=== PATIENT | male | born 1995 | race African-American/Black ===

== ENCOUNTER 2018-11-10 17:53 | Emergency (ER) | payer OTHER ==
[~2018-11-10] VITALS: Ht 182.9 cm; Wt 73.9 kg
--- NOTE | 2018-11-10 18:24 | ED.ADGEN ---
Adult General Chief Complaint Chief Complaint " I swallow a short metal object.. about two hours.. ago... It's a long story...I don't want to talk about it...." HPI HPI Patient is a 23 year old male [facility] inmate who presents with above hx and complaints of swallowing a metal object 2 hrs. ago. Pt. draws out on paper as to size of object. Approximately 1 cm x 0.25 cm. Pt. denies any abdomen complaints. Patient refusing any labs or x-rays. Patient insistent he cannot be made to complete any evaluation. Review of Systems Review of Systems Pt. has no complaints Constitutional: Denies fever or chills [] Eyes: Denies change in visual acuity, redness, or eye pain [] HENT: Denies nasal congestion or sore throat [] Respiratory: Denies cough or shortness of breath [] Cardiovascular: No additional information not addressed in HPI [] GI: Denies abdominal pain, nausea, vomiting, bloody stools or diarrhea [] : Denies dysuria or hematuria [] Musculoskeletal: Denies back pain or joint pain [] Integument: Denies rash or skin lesions [] Neurologic: Denies headache, focal weakness or sensory changes [] Endocrine: Denies polyuria or polydipsia [] All other systems were reviewed and found to be within normal limits, except as documented in this note. Family History Family History Noncontributory Current Medications Current Medications See nursing for home meds Allergies Allergies Allergies Coded Allergies Type Severity Reaction Last Updated Verified No Known Drug Allergies 11/10/18 No Physical Exam Physical Exam Constitutional: Well developed, well nourished, no acute distress, non-toxic appearance. [] HENT: Normocephalic, atraumatic, bilateral external ears normal, oropharynx moist, no oral exudates, nose normal. [] Eyes: PERRLA, EOMI, conjunctiva normal, no discharge. [] Neck: Normal range of motion, no tenderness, supple, no stridor. [] Cardiovascular:Heart rate regular rhythm, no murmur [] Lungs & Thorax: Bilateral breath sounds clear to auscultation [] Abdomen: Bowel sounds normal, soft, no tenderness, no masses, no pulsatile masses. [] Skin: Warm, dry, no erythema, no rash. [] Back: No tenderness, no CVA tenderness. [] Extremities: No tenderness, no cyanosis, no clubbing, ROM intact, no edema. [] Currently in cuff's, black nida, belly chains and leg cuffs. Neurologic: Alert and oriented X 3, normal motor function, normal sensory function, no focal deficits noted. [] Psychologic: Affect angry ,judgement normal, mood normal. [] Current Patient Data Vital Signs Vital Signs Date Time Temp Pulse Resp B/P (MAP) Pulse Ox O2 Delivery O2 Flow Rate FiO2 11/10/18 19:35 85 18 147/66 (93) 97 Room Air 11/10/18 17:53 97.5 EKG EKG [] Radiology/Procedures Radiology/Procedures Patient refuses x-rays[] Course & Med Decision Making Course & Med Decision Making Pertinent Labs and Imaging studies reviewed. (See chart for details) Patient refusing labs or x-rays.. Will discharge back to [facility] usp. Recommend pt. be place in dry cell until passage of the small metal object that he reportedly swallowed. Pt. may be attempting to conceal contra band- drugs, cuff haskins ect. Pt. to return if he wish work up. [] Final Impression Final Impression 1. Hx. of ingestion of small metal foreign object. Dragon Disclaimer Dragon Disclaimer This electronic medical record was generated, in whole or in part, using a voice recognition dictation system. Dragon Disclaimer This chart was dictated in whole or in part using Voice Recognition software in a busy, high-work load, and often noisy Emergency Department environment. It may contain unintended and wholly unrecognized errors or omissions. Discharge Summary Visit Information Final Diagnosis Problems Medical Problems: (1) Foreign bodies Status: Acute Brief Hospital Course Allergies Allergies Coded Allergies Type Severity Reaction Last Updated Verified No Known Drug Allergies 11/10/18 No Vital Signs Vital Signs Date Time Temp Pulse Resp B/P (MAP) Pulse Ox O2 Delivery O2 Flow Rate FiO2 11/10/18 19:35 85 18 147/66 (93) 97 Room Air 11/10/18 17:53 97.5 Brief Hospital Course Mr. Melo is a 23 old [facility] male inmate who presented with for evaluation after swallowing small metal object. Pt. refusing any labs or xrays. Discharge Information Condition at Discharge: Stable Disposition/Orders: D/C to Home ROMANA AVITIA MD Nov 10, 2018 18:24
[2018-11-10 19:35] VITALS: BP 147/66
== END 2018-11-10 19:35 | disposition home or self-care (01) ==
LOC: ER 17:53 → EEVIPCON 17:53 → ER 19:35
DX: T18.9XXA Foreign body of alimentary tract, part unspecified, initial encounter (principal); X58.XXXA Exposure to other specified factors, initial encounter; Y93.89 Activity, other specified; Y92.148 Other place in prison as the place of occurrence of the external cause; Y99.8 Other external cause status
CPT/HCPCS: 99283